=== PATIENT | female | born 1950 ===

== ENCOUNTER 2017-10-29 11:10 | Emergency (ER) | payer MEDICARE ==
[2017-10-29 11:16] VITALS: BMI 35.4
[2017-10-29 11:19] VITALS: BP 146/84; PULSE 73; RESP 18; TEMP 97.5; O2SAT 97
[2017-10-29] MEDS ORDERED: Sodium Chloride 0.9% 1,000 ML IV ONE (11:40)
--- NOTE | 2017-10-29 11:43 | C.PDOC ---
History Of Present Illness 67 yo female w/PMHx of NIDDM come in for evaluation of bodyaches, lower back pain gradually developed for past week. Pt reports, lower back is diffuse with radiating to B?L thighs, admits, hx of herniated disc lower back, similar sx in past. Pt also complaining retrosternal chest pain, dry cough, mild intermittent headache developed for past few days. Otherwise, pt denies high fever, chills, severe headache, dizziness, visual changes, focal deficits, neck pain, SOB, dyspnea, palpitation, wheezing, abd. pain, V/D, UTI sx. Ambulate to Ed for evaluation, not in any apparent distress., Time Seen by Provider: 10/29/17 11:25 Chief Complaint (Nursing): Back Pain History Per: Patient, Family Onset/Duration Of Symptoms: Gradual Past Medical History Reviewed: Historical Data, Nursing Documentation, Vital Signs Vital Signs: Last Vital Signs Temp 97.5 F L 10/29/17 11:18 Pulse 73 10/29/17 11:18 Resp 18 10/29/17 11:18 BP 146/84 10/29/17 11:18 Pulse Ox 97 10/29/17 13:23 - Medical History PMH: Diabetes, HTN Denies: CAD, Cardia Arrhythmia, Cardiac Aneurysm Family History: States: No Known Family Hx - Social History Hx Tobacco Use: No Hx Alcohol Use: No Hx Substance Use: No - Immunization History Hx Tetanus Toxoid Vaccination: No Hx Influenza Vaccination: No Hx Pneumococcal Vaccination: No Review Of Systems Except As Marked, All Systems Reviewed And Found Negative. Constitutional: Negative for: Fever, Chills Eyes: Negative for: Vision Change ENT: Negative for: Ear Discharge, Nose Discharge, Throat Pain, Throat Swelling Cardiovascular: Positive for: Chest Pain. Negative for: Palpitations, Edema, Light Headedness Respiratory: Positive for: Cough. Negative for: Shortness of Breath, Pleuritic Pain, Sputum, Wheezing Gastrointestinal: Negative for: Nausea, Vomiting, Abdominal Pain, Diarrhea Genitourinary: Negative for: Dysuria, Incontinence Musculoskeletal: Positive for: Back Pain. Negative for: Neck Pain Skin: Negative for: Rash, Bruising Neurological: Negative for: Weakness, Numbness, Altered Mental Status, Headache , Dizziness Physical Exam - Physical Exam Appears: Well, Non-toxic, No Acute Distress Skin: Normal Color, Warm, Dry, No Rash Head: Normacephalic Eye(s): bilateral: PERRL Nose: No Flaring, No Discharge Oral Mucosa: Moist, No Drooling Tongue: Normal Appearing Lips: Normal Appearing Throat: No Erythema, No Drooling Neck: Trachea Midline, Supple Cardiovascular: Rhythm Regular, No Murmur, No JVD, Other ((-) carotid bruits B/L ) Respiratory: No Decreased Breath Sounds, No Stridor, No Wheezing Gastrointestinal/Abdominal: Soft, No Tenderness, No Distention, No Guarding, No Rebound Back: No CVA Tenderness, Paraspinal Tenderness (diffuse lumbar paraspinal tenderness) Extremity: Normal ROM, No Pedal Edema, No Deformity, No Swelling Neurological/Psych: Oriented x3, Normal Speech, Normal Motor, Normal Sensation, Normal Reflexes ED Course And Treatment - Laboratory Results Result Diagrams: 10/29/17 11:53 10/29/17 11:53 Lab Interpretation: No Acute Changes ECG: Interpreted By Me, Viewed By Me (and ED attending) ECG Interpretation: No Changes From Prior Interpretation Of ECG: Sinus braulio@58/min, NAD, no acute T wave or ST-T changes. O2 Sat by Pulse Oximetry: 97 Pulse Ox Interpretation: Normal - Radiology CXR: Interpreted by Me, Viewed By Me, Read By Radiologist CXR Interpretation: Yes: No Acute Disease Progress Note: Pt was OBS in ED for 3 hours and reports mod improvement in sx. On re-evaluation, pt reports moderate improvemen in sx after ed treatment. AFebrile, hemodynamicaly stable. Non-toxic. AMbulatory in ED with stable gait. Neck: SUpple, (-) meningeal sign. ENT:no acute findings. Uvula midline, no edema. Lungs: CTA B/L, BS equal B/L. CVS: (+)S1S2, reg. ABd: benign, (-) guarding, (-) rebound. Neurologicaly intact. Blood work review and appears normal. Troponin I- negative. EKG, CXR- no acute finidngs. CT abd/pelvis- no acute finidngs. Pt advised on course of ds. ref. to F/u with PMD in 1-2 days for re-eval, Pt understand and agrees with plan. Disposition Counseled Patient/Family Regarding: Studies Performed, Diagnosis, Need For Followup, Rx Given - Disposition Referrals: Marina,Neri, MD [Staff Provider] - Disposition: HOME/ ROUTINE Disposition Time: 13:18 Condition: STABLE Additional Instructions: Light duty to lower back Take pain medication as prescribed Encourage fluids Follow up with PMD in 2-3 days for re-evaluation. Return to ED if any worsening or new changes. Prescriptions: Azithromycin [Zithromax] 250 mg PO DAILY #4 tab Gabapentin [Neurontin] 300 mg PO BID #10 cap Ibuprofen [Motrin Tab] 400 mg PO Q6 #14 tab traMADol [Ultram] 50 mg PO TID #7 tab Instructions: Herniated Disc (DC), Acute Bronchitis, Radiculopathy Forms: [employer] ([place]er) - Clinical Impression Clinical Impression: Lumbar radiculopathy, Bronchitis
[2017-10-29 11:57] LABS: BASO % 1.2 % (0.0-2.0); EOS # 0.1 K/uL (0.0-0.7); EOS % 2.7 % (0.0-4.0); HEMOGLOBIN 12.6 g/dL (11.0-16.0); LYMPH # 1.6 K/uL (1.0-4.3); LYMPH % 44.5 % (20.0-40.0); MEAN CELL VOLUME 87.7 fL (81.0-99.0); MEAN CORPUSCULAR HEMOGLOBIN 30.3 pg (27.0-31.0); MEAN CORPUSCULAR HGB CONC 34.5 g/dL (33.0-37.0); MEAN PLATELET VOLUME 9.3 fL (7.2-11.7); MONO # 0.3 K/uL (0.0-0.8); MONO % 7.5 % (0.0-10.0); NEUT # 1.6 K/uL (1.8-7.0); NEUT % 44.1 % (50.0-75.0); NRBC % 0.1 % (0.0-2.0); RBC 4.17 Mil/uL (3.80-5.20); RED CELL DISTRIBUTION WIDTH 13.5 % (11.5-14.5); WHITE BLOOD COUNT 3.7 K/uL (4.8-10.8)
[2017-10-29 11:59] LABS: SQUAMOUS EPITHIAL 2 /hpf (0-5); URINE BACTERIA RARE (<OCC); URINE BILIRUBIN NEGATIVE (NEGATIVE); URINE BLOOD NEGATIVE (NEGATIVE); URINE CLARITY Clear (Clear); URINE COLOR Yellow (YELLOW); URINE GLUCOSE (UA) NORMAL (Normal); URINE LEUKOCYTE ESTERASE NEG Leu/uL (Negative); URINE PROTEIN NEGATIVE (NEGATIVE); URINE UROBILINOGEN NORMAL mg/dL (0.2-1.0)
[2017-10-29 12:04] LABS: PROTHROMBIN TIME 11.6 SECONDS (9.7-12.2)
[2017-10-29 12:08] LABS: ALB/GLOB RATIO 1.2 (1.0-2.1); ALBUMIN 4.1 g/dL (3.5-5.0); ALT/SGPT 20 U/L (9-52); AST/SGOT 22 U/L (14-36); BLOOD UREA NITROGEN 14 mg/dL (7-17); CALCIUM 9.5 mg/dl (8.6-10.4); GFR AFRICAN-AMERICAN > 60; GFR NON-AFRICAN AMERICAN > 60
--- NOTE | 2017-10-29 12:38 | RAD ---
HISTORY: chest pain COMPARISON: 10/18/2012 TECHNIQUE: Chest PA and lateral FINDINGS: LUNGS: No active pulmonary disease. PLEURA: Minimal fluid/thickening of minor fissure, unchanged. CARDIOVASCULAR: Normal. OSSEOUS STRUCTURES: No significant abnormalities. VISUALIZED UPPER ABDOMEN: Normal. OTHER FINDINGS: None. IMPRESSION: No active disease.
--- NOTE | 2017-10-30 12:57 | CARD ---
APPROVED REPORT EKG Measurement Heart [id number] <Conclusion> Sinus bradycardia Nonspecific T wave abnormality Abnormal ECG
== END 2017-10-29 13:39 | disposition home or self-care (01) ==
LOC: C.ER 11:10
DX: M54.16 Radiculopathy, lumbar region (principal); J40 Bronchitis, not specified as acute or chronic
CPT/HCPCS: 71046; 80053; 81001; 84484; 85025; 85610; 85730; 93005; 96361; 96374; 99284; J1885; J7040